=== PATIENT | male | born 1990 | race Hispanic/Latino ===

== ENCOUNTER 2017-11-02 16:44 | Emergency (ER) | payer OTHER ==
[2017-11-02] MEDS ORDERED: Ketorolac Tromethamine 60 MG/2 ML VIAL ONE (17:04)
[2017-11-02] MEDS ORDERED: Methocarbamol 500 MG TAB ONE ×2 (17:05)
--- NOTE | 2017-11-02 19:56 | CT ---
CT OF THE LUMBAR SPINE WITHOUT CONTRAST: 11/02/17 HISTORY: Trauma. COMPARISON: None. FINDINGS: The aortic contour is normal. No retroperitoneal adenopathy. The paraspinal musculature is normal. No hydronephrosis. The visualized portion of the adrenal glands are unremarkable. Severe sclerosis of the ilium on the left. SI joints are unremarkable. Sacral ala is without fracture . Transverse processes are intact. No acute fracture or malalignment. The spinous processes are intact. No significant neural foraminal or spinal canal narrowing is appreciated. IMPRESSION: 1. No acute fracture or malalignment. 2. Within limitations of this examination, no significant neural foraminal or spinal canal narro wing is appreciated. POS: HOME
== END 2017-11-02 18:02 | disposition home or self-care (01) ==
LOC: SCSER 16:44
DX: S39.012A Strain of muscle, fascia and tendon of lower back, initial encounter (principal); M54.42 Lumbago with sciatica, left side; E11.9 Type 2 diabetes mellitus without complications; I10 Essential (primary) hypertension; X50.9XXA Other and unspecified overexertion or strenuous movements or postures, initial encounter
CPT/HCPCS: 72131; 96372; J1885